=== PATIENT | male | born 1955 | race African-American/Black ===

== ENCOUNTER 2023-07-15 14:03 | Emergency (ER) | payer BC, MEDICAID ==
[~2023-07-15] VITALS: Ht 188 cm; Wt 75.0 kg
[~2023-07-15 14:03] MED LIST: CLON0.1T PO; LANTUSUD SUBCUT; NIFE-33 PO
[2023-07-15 14:06] VITALS: BP 129/66; PULSE 120; RESP 16; TEMP 98.1; O2SAT 96
[2023-07-15 15:28] LABS: BASOPHILS % 0.7 % (0.0-2.0); EOSINOPHILS % 1.5 % (0.0-5.0); HEMATOCRIT. 36.6 % (42.0-52.0); HEMOGLOBIN. 12.4 g/dL (14.0-18.0); LYMPHOCYTES % 13.9 % (20.0-50.0); MEAN CORPUSCULAR HGB CONC 33.9 g/dL (31.0-37.0); MEAN CORPUSCULAR VOLUME 97.2 fL (80.0-94.0); MEAN PLATELET VOLUME 10.1 fl (7.4-10.4); MONOCYTES % 8.9 % (2.0-8.0); PLATELET 127 x1000/uL (130-400); RED BLOOD CELL COUNT 3.76 mill/uL (4.7-6.1)
[2023-07-15 15:55] LABS: ALANINE AMINOTRANSFERASE 44 IU/L (10-49); ALBUMIN 3.5 g/dL (3.2-4.8); ASPARTATE AMINOTRANSFERASE 21 IU/L (<34); CALCIUM 8.2 mg/dL (8.7-10.4); CARBON DIOXIDE 25 mEq/L (21-32); CHLORIDE 108 mEq/L (98-107); CREATININE 1.2 mg/dL (0.6-1.3); GLUCOSE 125 mg/dL (70-105); SODIUM 142 mEq/L (136-145); UREA NITROGEN BLOOD 18 mg/dL (9-23)
[2023-07-15 15:56] LABS: TROPONIN I HIGH SENSITIVITY 90 ng/L (3.0-53)
[2023-07-15] MEDS ORDERED: ASPIRIN 81MG TABLET PO ONE (19:15)
[2023-07-15] MEDS ORDERED: DIPHENHYDRAMINE 50MG/ML VIAL IV PRN (19:30)
[2023-07-15] MEDS ORDERED: ACETAMINOPHEN 325MG TABLET PO PRN (19:30)
[2023-07-15] MEDS ORDERED: CLONIDINE 0.1MG TABLET PO PRN (19:30)
[2023-07-15] MEDS ORDERED: ONDANSETRON HCL 4MG/2ML INJ IV PRN (19:30)
[2023-07-15] MEDS ORDERED: IPRATROPIUM/ALBUTEROL 0.5-3(2.5)MG/3ML NEB HHN PRN (19:30)
== END 2023-07-15 23:49 | disposition left against medical advice (07) ==
LOC: ER 14:03 → EDBEDREQ 20:15 → EDBEDREQTM 20:15 → CANBEDREQ 23:48 → ER 23:49
DX: I21.4 Non-ST elevation (NSTEMI) myocardial infarction (principal); J44.9 Chronic obstructive pulmonary disease, unspecified; E11.9 Type 2 diabetes mellitus without complications; I10 Essential (primary) hypertension; F15.90 Other stimulant use, unspecified, uncomplicated
CPT/HCPCS: 36415; 71045; 80053; 83880; 84484; 85025; 93005; 99285

== ENCOUNTER 2023-10-15 21:59 | Emergency (ER) | payer BC, MEDICAID ==
[~2023-10-15] VITALS: Ht 167.6 cm; Wt 76.0 kg
[~2023-10-15 21:59] MED LIST changes: +ALBU10.7 INH; +AMLO10TA80 PO; +ATOR40TA70 PO; +METF-416 PO; +P20 MT; +POTA-354 PO
[2023-10-15 22:02] VITALS: BP 185/116; PULSE 114; RESP 16; TEMP 98.2; O2SAT 95
== END 2023-10-16 03:22 | disposition home or self-care (01) ==
LOC: ER 21:59
DX: K40.90 Unilateral inguinal hernia, without obstruction or gangrene, not specified as recurrent (principal); F14.10 Cocaine abuse, uncomplicated; I11.0 Hypertensive heart disease with heart failure; I50.9 Heart failure, unspecified; E11.9 Type 2 diabetes mellitus without complications; J44.1 Chronic obstructive pulmonary disease with (acute) exacerbation; Z79.899 Other long term (current) drug therapy; Z86.73 Personal history of transient ischemic attack (TIA), and cerebral infarction without residual deficits
CPT/HCPCS: 99283